=== PATIENT | female | born 1960 ===

== ENCOUNTER 2018-02-20 22:10 | Inpatient (IN) | payer OTHER ==
[2018-02-20] MEDS ORDERED: LACTULOSE 30ML CUP PO (23:45)
[2018-02-20] MEDS ORDERED: BISACODYL 10 MG SUPP PR ×2 (23:45)
[2018-02-20] MEDS ORDERED: SENNA TAB PO (23:45)
[2018-02-20] MEDS ORDERED: MAGNESIUM HYDROXIDE 30ML CUP PO (23:45)
[2018-02-20] MEDS ORDERED: ONDANSETRON 4 MG TAB PO (23:45)
[2018-02-20] MEDS ORDERED: DIPHENHYDRAMINE 25 MG CAP PO (23:45)
[2018-02-21] MEDS: HYDROCODONE/APAP (5/325) TAB PO ×2 (00:31→08:13)
[2018-02-21] MEDS: ZOLPIDEM 5 MG TAB PO (00:32)
[2018-02-21 00:52] LABS: ADD UMIC YES; UR ASCORBIC ACID NEGATIVE (NEGATIVE); UR BILIRUBIN (Dip) NEGATIVE (NEGATIVE); UR BLOOD (Dip) 2+ mg/dL (NEGATIVE); UR CLARITY CLEAR (CLEAR); UR COLOR STRAW (YELLOW); UR GLUCOSE (Dip) NEGATIVE (NEGATIVE); UR KETONES (Dip) NEGATIVE (NEGATIVE); UR LEUKOCYTE ESTERASE (Dip) NEGATIVE Leu/ul (NEGATIVE); UR NITRITE (Dip) NEGATIVE (NEGATIVE); UR RBC 1 /HPF (0-5); UR SPECIFIC GRAVITY (Dip) 1.004 (1.003-1.030); UR TOTAL PROTEIN (Dip) NEGATIVE (NEGATIVE); UR UROBILINOGEN (Dip) NEGATIVE (NEGATIVE); UR WBC 2 /HPF (0-5)
[2018-02-21 06:46] LABS: ADD MAN DIFF? NO
[2018-02-21 06:49] LABS: WHITE BLOOD COUNT 10.4 10^3/ul (4.8-10.8)
[2018-02-21 06:49] LABS: BASOPHILS % 0.4 % (0.0-2.0); EOSINOPHILS # 0.3 10^3/ul (0.0-0.5); EOSINOPHILS % 3.1 % (0.0-7.0); HEMATOCRIT 31.7 % (37.0-47.0); HEMOGLOBIN 10.6 g/dl (12.0-16.0); LYMPHOCYTES # 2.4 10^3/ul (0.8-2.9); LYMPHOCYTES % 23.1 % (15.0-51.0); MEAN CORPUSCULAR HEMOGLOBIN 30.1 pg (29.0-33.0); MEAN CORPUSCULAR HGB CONC 33.4 g/dl (32.0-37.0); MEAN CORPUSCULAR VOLUME 90.1 fl (82.0-101.0); MEAN PLATELET VOLUME 10.5 fl (7.4-10.4); MONOCYTE # 0.8 10^3/ul (0.3-0.9); MONOCYTES % 8.1 % (0.0-11.0); NEUTROPHIL # 6.8 10^3/ul (1.6-7.5); NEUTROPHILS % 64.9 % (39.0-77.0); PLATELET COUNT 206 10^3/UL (140-415); RED BLOOD COUNT 3.52 10^6/ul (4.20-5.40); RED CELL DISTRIBUTION WIDTH 14.1 % (11.5-14.5)
[2018-02-21 07:52] LABS: ALANINE AMINOTRANSFERASE 21 IU/L (13-69); ALBUMIN 3.2 g/dl (3.3-4.9); ALKALINE PHOSPHATASE 86 IU/L (42-121); ANION GAP 15 (8-16); ASPARTATE AMINO TRANSFERASE 17 IU/L (15-46); BILIRUBIN,INDIRECT 0.4 mg/dl (0-1.1); BILIRUBIN,TOTAL 0.4 mg/dl (0.2-1.3); BLOOD UREA NITROGEN 7 mg/dl (7-20); CALCIUM 8.5 mg/dl (8.4-10.2); CARBON DIOXIDE 30 mmol/L (21-31); CHLORIDE 99 mmol/L (97-110); CREATININE 0.57 mg/dl (0.44-1.00); GLUCOSE 130 mg/dl (70-220); POTASSIUM 3.8 mmol/L (3.5-5.1); SODIUM 140 mmol/L (135-144); TOTAL PROTEIN 6.4 g/dl (6.1-8.1)
[2018-02-21] MEDS: HYDROmorphONE 0.5 MG/0.5 ML SYG IM ×3 (09:41→16:00)
[2018-02-21] MEDS: ASPIRIN 325 MG TAB PO ×2 (09:57→20:27)
[2018-02-21] MEDS: DOCUSATE SODIUM 100 MG CAP PO ×2 (09:57→20:26)
[2018-02-21] MEDS ORDERED: HYDROmorphONE 0.5 MG/0.5 ML SYG IV (18:30)
[2018-02-21] MEDS: HYDROmorphONE 0.5 MG/0.5 ML SYG IV ×2 (18:51→19:02)
[2018-02-21] MEDS: PANTOPRAZOLE (EC) 40 MG TAB PO (20:22)
[2018-02-22] MEDS: HYDROmorphONE 0.5 MG/0.5 ML SYG IV ×4 (01:33→19:28)
[2018-02-22] MEDS: HYDROCODONE/APAP (5/325) TAB PO ×4 (06:40→20:27)
[2018-02-22] MEDS: DOCUSATE SODIUM 100 MG CAP PO ×2 (09:22→20:27)
[2018-02-22] MEDS: FERROUS SULFATE (EC) 325 MG TAB PO (09:22)
[2018-02-22] MEDS: ASPIRIN 325 MG TAB PO ×2 (09:22→20:26)
[2018-02-22] MEDS: PANTOPRAZOLE (EC) 40 MG TAB PO (20:27)
[2018-02-23] MEDS: HYDROmorphONE 0.5 MG/0.5 ML SYG IV ×2 (02:38→20:02)
[2018-02-23] MEDS: HYDROCODONE/APAP (5/325) TAB PO ×3 (05:40→14:20)
[2018-02-23] MEDS: FERROUS SULFATE (EC) 325 MG TAB PO (09:28)
[2018-02-23] MEDS: ASPIRIN 325 MG TAB PO ×2 (09:28→20:02)
[2018-02-23] MEDS: DOCUSATE SODIUM 100 MG CAP PO ×2 (09:28→20:02)
[2018-02-23] MEDS: HYDROCODONE/APAP (10/325) TAB PO ×2 (17:47→23:27)
[2018-02-23] MEDS: PANTOPRAZOLE (EC) 40 MG TAB PO (20:02)
[2018-02-24] MEDS: HYDROmorphONE 0.5 MG/0.5 ML SYG IV ×8 (02:44→23:41)
[2018-02-24] MEDS: HYDROCODONE/APAP (10/325) TAB PO ×2 (04:41→08:30)
[2018-02-24] MEDS: ASPIRIN 325 MG TAB PO (08:30)
[2018-02-24] MEDS: FERROUS SULFATE (EC) 325 MG TAB PO (08:30)
[2018-02-24] MEDS: DOCUSATE SODIUM 100 MG CAP PO ×2 (08:30→21:00)
[2018-02-24] MEDS: morphine (ER) 15 MG TAB PO ×2 (09:30→20:51)
[2018-02-24] MEDS: PANTOPRAZOLE (EC) 40 MG TAB PO (20:51)
[2018-02-24] MEDS: ENOXAPARIN 40 MG/0.4 ML SYG SC (20:52)
[2018-02-24 21:23] LABS: ADD MAN DIFF? NO
[2018-02-24 21:24] LABS: WHITE BLOOD COUNT 8.8 10^3/ul (4.8-10.8)
[2018-02-24 21:24] LABS: BASOPHIL # 0.1 10^3/ul (0.0-0.1); BASOPHILS % 0.6 % (0.0-2.0); EOSINOPHILS # 0.4 10^3/ul (0.0-0.5); EOSINOPHILS % 4.2 % (0.0-7.0); HEMATOCRIT 30.9 % (37.0-47.0); HEMOGLOBIN 10.1 g/dl (12.0-16.0); LYMPHOCYTES # 2.1 10^3/ul (0.8-2.9); LYMPHOCYTES % 23.9 % (15.0-51.0); MEAN CORPUSCULAR HGB CONC 32.7 g/dl (32.0-37.0); MEAN CORPUSCULAR VOLUME 91.7 fl (82.0-101.0); MEAN PLATELET VOLUME 9.3 fl (7.4-10.4); MONOCYTE # 0.9 10^3/ul (0.3-0.9); MONOCYTES % 9.6 % (0.0-11.0); NEUTROPHIL # 5.4 10^3/ul (1.6-7.5); NEUTROPHILS % 61.1 % (39.0-77.0); NUCLEATED RED BLOOD CELLS% 0.2 /100WBC (0.0-0.0); PLATELET COUNT 328 10^3/UL (140-415); RED BLOOD COUNT 3.37 10^6/ul (4.20-5.40); RED CELL DISTRIBUTION WIDTH 14.1 % (11.5-14.5)
[2018-02-24 21:48] LABS: ANION GAP 12 (8-16); BLOOD UREA NITROGEN 9 mg/dl (7-20); CALCIUM 8.6 mg/dl (8.4-10.2); CARBON DIOXIDE 33 mmol/L (21-31); CHLORIDE 98 mmol/L (97-110); CREATININE 0.59 mg/dl (0.44-1.00); GLUCOSE 122 mg/dl (70-220); POTASSIUM 4.1 mmol/L (3.5-5.1); SODIUM 139 mmol/L (135-144)
[2018-02-24] MEDS: ACETAMINOPHEN 325 MG TAB PO (23:41)
[2018-02-25] MEDS: HYDROmorphONE 0.5 MG/0.5 ML SYG IV ×4 (03:12→16:47)
[2018-02-25 07:06] LABS: ADD MAN DIFF? NO
[2018-02-25 07:14] LABS: WHITE BLOOD COUNT 7.7 10^3/ul (4.8-10.8)
[2018-02-25 07:14] LABS: BASOPHILS % 0.4 % (0.0-2.0); EOSINOPHILS # 0.3 10^3/ul (0.0-0.5); EOSINOPHILS % 4.3 % (0.0-7.0); HEMATOCRIT 30.1 % (37.0-47.0); HEMOGLOBIN 9.7 g/dl (12.0-16.0); LYMPHOCYTES # 2.3 10^3/ul (0.8-2.9); LYMPHOCYTES % 29.6 % (15.0-51.0); MEAN CORPUSCULAR HEMOGLOBIN 29.6 pg (29.0-33.0); MEAN CORPUSCULAR HGB CONC 32.2 g/dl (32.0-37.0); MEAN CORPUSCULAR VOLUME 91.8 fl (82.0-101.0); MEAN PLATELET VOLUME 9.5 fl (7.4-10.4); MONOCYTE # 0.6 10^3/ul (0.3-0.9); MONOCYTES % 7.1 % (0.0-11.0); NEUTROPHIL # 4.5 10^3/ul (1.6-7.5); NEUTROPHILS % 57.8 % (39.0-77.0); PLATELET COUNT 355 10^3/UL (140-415); RED BLOOD COUNT 3.28 10^6/ul (4.20-5.40); RED CELL DISTRIBUTION WIDTH 14.5 % (11.5-14.5)
[2018-02-25 07:37] LABS: ALANINE AMINOTRANSFERASE 24 IU/L (13-69); ALBUMIN 3.3 g/dl (3.3-4.9); ALBUMIN/GLOBULIN RATIO 0.94; ALKALINE PHOSPHATASE 86 IU/L (42-121); ANION GAP 13 (8-16); ASPARTATE AMINO TRANSFERASE 24 IU/L (15-46); BILIRUBIN,INDIRECT 0.4 mg/dl (0-1.1); BILIRUBIN,TOTAL 0.4 mg/dl (0.2-1.3); BLOOD UREA NITROGEN 10 mg/dl (7-20); CALCIUM 8.6 mg/dl (8.4-10.2); CARBON DIOXIDE 33 mmol/L (21-31); CHLORIDE 98 mmol/L (97-110); CREATININE 0.59 mg/dl (0.44-1.00); GLUCOSE 123 mg/dl (70-220); POTASSIUM 4.4 mmol/L (3.5-5.1); SODIUM 140 mmol/L (135-144); TOTAL PROTEIN 6.8 g/dl (6.1-8.1)
[2018-02-25 07:43] LABS: PHOSPHORUS 4.2 mg/dl (2.5-4.9)
[2018-02-25] MEDS: ENOXAPARIN 40 MG/0.4 ML SYG SC (09:10)
[2018-02-25] MEDS: morphine (ER) 15 MG TAB PO ×2 (09:11→21:39)
[2018-02-25] MEDS: DOCUSATE SODIUM 100 MG CAP PO ×2 (09:12→21:38)
[2018-02-25] MEDS: FERROUS SULFATE (EC) 325 MG TAB PO (09:12)
[2018-02-25] MEDS: HYDROCODONE/APAP (10/325) TAB PO ×3 (13:54→19:47)
[2018-02-25] MEDS: PANTOPRAZOLE (EC) 40 MG TAB PO (21:39)
[2018-02-25] MEDS: ZOLPIDEM 5 MG TAB PO (21:42)
[2018-02-26] MEDS: HYDROCODONE/APAP (10/325) TAB PO ×4 (05:36→18:32)
[2018-02-26] MEDS: DOCUSATE SODIUM 100 MG CAP PO ×2 (08:34→21:05)
[2018-02-26] MEDS: ENOXAPARIN 40 MG/0.4 ML SYG SC (08:34)
[2018-02-26] MEDS: FERROUS SULFATE (EC) 325 MG TAB PO (08:34)
[2018-02-26] MEDS: morphine (ER) 15 MG TAB PO ×2 (08:35→21:05)
[2018-02-26] MEDS: HYDROmorphONE 0.5 MG/0.5 ML SYG IV ×2 (11:47→16:02)
[2018-02-26] MEDS: AL HYDROX/MG HYDROX/SIMETH 30 ML CUP PO (21:05)
[2018-02-26] MEDS: PANTOPRAZOLE (EC) 40 MG TAB PO (21:05)
[2018-02-27] MEDS: HYDROmorphONE 0.5 MG/0.5 ML SYG IV ×7 (01:14→18:01)
[2018-02-27] MEDS: HYDROCODONE/APAP (10/325) TAB PO (04:48)
[2018-02-27] MEDS: FERROUS SULFATE (EC) 325 MG TAB PO (07:37)
[2018-02-27] MEDS: DOCUSATE SODIUM 100 MG CAP PO ×2 (07:37→21:36)
[2018-02-27] MEDS: ENOXAPARIN 40 MG/0.4 ML SYG SC (07:43)
[2018-02-27] MEDS: morphine (ER) 15 MG TAB PO ×2 (08:45→21:37)
[2018-02-27] MEDS: PANTOPRAZOLE (EC) 40 MG TAB PO (21:36)
[2018-02-27] MEDS: ZOLPIDEM 5 MG TAB PO (21:37)
[2018-02-28 07:11] LABS: ADD MAN DIFF? NO
[2018-02-28 07:17] LABS: WHITE BLOOD COUNT 7.7 10^3/ul (4.8-10.8)
[2018-02-28 07:17] LABS: BASOPHILS % 0.5 % (0.0-2.0); EOSINOPHILS # 0.3 10^3/ul (0.0-0.5); EOSINOPHILS % 3.5 % (0.0-7.0); HEMOGLOBIN 9.6 g/dl (12.0-16.0); LYMPHOCYTES % 25.4 % (15.0-51.0); MEAN CORPUSCULAR HEMOGLOBIN 29.6 pg (29.0-33.0); MEAN CORPUSCULAR VOLUME 92.6 fl (82.0-101.0); MEAN PLATELET VOLUME 9.3 fl (7.4-10.4); MONOCYTE # 0.8 10^3/ul (0.3-0.9); MONOCYTES % 9.7 % (0.0-11.0); NEUTROPHIL # 4.6 10^3/ul (1.6-7.5); NEUTROPHILS % 60.1 % (39.0-77.0); PLATELET COUNT 445 10^3/UL (140-415); RED BLOOD COUNT 3.24 10^6/ul (4.20-5.40); RED CELL DISTRIBUTION WIDTH 14.4 % (11.5-14.5)
[2018-02-28 07:47] LABS: ALANINE AMINOTRANSFERASE 34 IU/L (13-69); ALBUMIN 3.2 g/dl (3.3-4.9); ALBUMIN/GLOBULIN RATIO 0.94; ALKALINE PHOSPHATASE 86 IU/L (42-121); ANION GAP 10 (8-16); ASPARTATE AMINO TRANSFERASE 34 IU/L (15-46); BILIRUBIN,INDIRECT 0.2 mg/dl (0-1.1); BILIRUBIN,TOTAL 0.2 mg/dl (0.2-1.3); BLOOD UREA NITROGEN 9 mg/dl (7-20); CALCIUM 8.8 mg/dl (8.4-10.2); CARBON DIOXIDE 36 mmol/L (21-31); CHLORIDE 101 mmol/L (97-110); CREATININE 0.63 mg/dl (0.44-1.00); GLUCOSE 109 mg/dl (70-220); MAGNESIUM 2.2 mg/dl (1.7-2.5); POTASSIUM 4.3 mmol/L (3.5-5.1); SODIUM 143 mmol/L (135-144); TOTAL PROTEIN 6.6 g/dl (6.1-8.1)
[2018-02-28 07:47] LABS: PHOSPHORUS 4.1 mg/dl (2.5-4.9)
[2018-02-28] MEDS: DOCUSATE SODIUM 100 MG CAP PO ×2 (07:50→20:36)
[2018-02-28] MEDS: HYDROmorphONE 0.5 MG/0.5 ML SYG IV ×5 (07:52→18:34)
[2018-02-28] MEDS: ENOXAPARIN 40 MG/0.4 ML SYG SC (08:23)
[2018-02-28] MEDS: morphine (ER) 15 MG TAB PO ×2 (10:04→20:36)
[2018-02-28] MEDS: FERROUS SULFATE (EC) 325 MG TAB PO (10:05)
[2018-02-28] MEDS: HYDROCODONE/APAP (10/325) TAB PO ×2 (13:41→20:36)
[2018-02-28] MEDS: PANTOPRAZOLE (EC) 40 MG TAB PO (20:36)
[2018-03-01] MEDS: HYDROCODONE/APAP (10/325) TAB PO ×4 (01:15→19:43)
[2018-03-01 07:28] LABS: ADD UMIC NO; UR ASCORBIC ACID NEGATIVE (NEGATIVE); UR BILIRUBIN (Dip) NEGATIVE (NEGATIVE); UR BLOOD (Dip) NEGATIVE (NEGATIVE); UR CLARITY CLEAR (CLEAR); UR COLOR STRAW (YELLOW); UR GLUCOSE (Dip) NEGATIVE (NEGATIVE); UR KETONES (Dip) NEGATIVE (NEGATIVE); UR LEUKOCYTE ESTERASE (Dip) NEGATIVE Leu/ul (NEGATIVE); UR NITRITE (Dip) NEGATIVE (NEGATIVE); UR SPECIFIC GRAVITY (Dip) 1.003 (1.003-1.030); UR TOTAL PROTEIN (Dip) NEGATIVE (NEGATIVE); UR UROBILINOGEN (Dip) NEGATIVE (NEGATIVE)
[2018-03-01] MEDS: HYDROmorphONE 0.5 MG/0.5 ML SYG IV (07:56)
[2018-03-01] MEDS: FERROUS SULFATE (EC) 325 MG TAB PO (08:05)
[2018-03-01] MEDS: DOCUSATE SODIUM 100 MG CAP PO ×2 (08:06→20:43)
[2018-03-01] MEDS: morphine (ER) 15 MG TAB PO ×2 (08:06→20:44)
[2018-03-01] MEDS: ENOXAPARIN 40 MG/0.4 ML SYG SC (08:11)
[2018-03-01] MEDS ORDERED: MAGNESIUM CITRATE 300 ML BTL PO (19:00)
[2018-03-01] MEDS: MAGNESIUM CITRATE 300 ML BTL PO (19:08)
[2018-03-01] MEDS: PANTOPRAZOLE (EC) 40 MG TAB PO (20:43)
[2018-03-01] MEDS: ZOLPIDEM 5 MG TAB PO (21:47)
[2018-03-02] MEDS: AL HYDROX/MG HYDROX/SIMETH 30 ML CUP PO (01:00)
[2018-03-02] MEDS: HYDROCODONE/APAP (10/325) TAB PO ×4 (01:05→17:09)
[2018-03-02] MEDS: DOCUSATE SODIUM 100 MG CAP PO ×2 (09:21→20:12)
[2018-03-02] MEDS: ENOXAPARIN 40 MG/0.4 ML SYG SC (09:22)
[2018-03-02] MEDS: morphine (ER) 15 MG TAB PO ×2 (09:22→20:12)
[2018-03-02] MEDS: FERROUS SULFATE (EC) 325 MG TAB PO (09:22)
[2018-03-02] MEDS: PANTOPRAZOLE (EC) 40 MG TAB PO (20:12)
[2018-03-03] MEDS: HYDROCODONE/APAP (10/325) TAB PO (02:45)
[2018-03-03] MEDS: DOCUSATE SODIUM 100 MG CAP PO (08:28)
[2018-03-03] MEDS: FERROUS SULFATE (EC) 325 MG TAB PO (08:28)
[2018-03-03] MEDS: morphine (ER) 15 MG TAB PO (08:28)
[2018-03-03] MEDS: ENOXAPARIN 40 MG/0.4 ML SYG SC (08:30)
== END 2018-03-03 14:00 | disposition home or self-care (01) | DRG 560 ==
LOC: VRC 22:10
DX: Z47.1 Aftercare following joint replacement surgery (principal); Z68.41 Body mass index [BMI] 40.0-44.9, adult; Z96.651 Presence of right artificial knee joint; E66.01 Morbid (severe) obesity due to excess calories; D64.9 Anemia, unspecified; G89.18 Other acute postprocedural pain; K59.00 Constipation, unspecified; F06.31 Mood disorder due to known physiological condition with depressive features; R50.9 Fever, unspecified
CPT/HCPCS: 73560; 80048; 80053; 81001; 81003; 83735; 84100; 85025; 87081; 87086; 93971; 97110; 97116; 97150; 97163; 97167; 97530; 97535